=== PATIENT | male | born 1970 | race Caucasian/White ===

== ENCOUNTER 2016-08-05 22:44 | Emergency (ER) | payer OTHER ==
[2016-08-05 23:58] LABS: BASO % 0.3 % (0.2-1.2); EOS # 0.2 10_X3_uL (0.0-0.5); EOS % 2.1 % (0.8-7.0); GRAN # 8.1 10_X3_uL (1.8-5.4); GRAN % 73.9 % (34.0-67.9); HEMATOCRIT 47.1 % (40-51); HEMOGLOBIN 16.2 g/dL (13.7-17.5); LYMPH # 1.8 10_X3_uL (1.3-3.6); MEAN CORPUSCULAR HEMOGLOBIN 31.6 pg (27.0-33.0); MEAN CORPUSCULAR HGB CONC 34.4 g/dL (32.0-36.0); MEAN CORPUSCULAR VOLUME 91.8 fL (79-92); MEAN PLATELET VOLUME 9.7 fl (7.5-11.5); MONO # 0.9 10_X3_uL (0.3-0.8); MONO % 7.7 % (5.3-12.2); PLATELET COUNT 206 x10_3/uL (163-337); RED BLOOD COUNT 5.13 x10_6/uL (4.6-6.1); RED CELL DISTRIBUTION WIDTH 12.9 % (11.6-14.4)
[2016-08-06 00:09] LABS: ALBUMIN 4.1 gm/dL (3.4-5.0); ALKALINE PHOSPHATASE 62 U/L (50-136); ALT/SGPT 34 U/L (7.53-40.17); AMYLASE 86 U/L (15.62-74.58); AST/SGOT 25 U/L (6.66-35.34); BILIRUBIN,TOTAL 0.34 mg/dL (0.0-1.0); BLOOD UREA NITROGEN 14 mg/dL (7-18); CALCIUM 9.4 mg/dL (8.7-10.7); CARBON DIOXIDE 26 mmol/L (21-32); GLUCOSE,RANDOM 111 mg/dL (70-99); LIPASE 56 U/L (6.75-60.75); POTASSIUM 3.7 mmol/L (3.5-5.1); SODIUM 135 mmol/L (136-145)
== END 2016-08-06 01:07 | disposition home or self-care (01) ==
LOC: ER 22:44
PROVIDERS: Emergency Medicine
DX: K21.9 Gastro-esophageal reflux disease without esophagitis (principal); R10.13 Epigastric pain; R07.9 Chest pain, unspecified; F41.9 Anxiety disorder, unspecified; M54.5 Low back pain; J30.9 Allergic rhinitis, unspecified; F17.220 Nicotine dependence, chewing tobacco, uncomplicated; Z88.1 Allergy status to other antibiotic agents; Z88.8 Allergy status to other drugs, medicaments and biological substances
CPT/HCPCS: 36415; 80053; 82150; 83690; 85025; 93005; 96374; 99070; 99284; 99284-25